=== PATIENT | male | born 1935 | race Caucasian/White ===

== ENCOUNTER 2016-08-27 08:49 | Emergency (ER) | payer BC, OTHER ==
[~2016-08-27] VITALS: Ht 177.8 cm; Wt 100.0 kg
[2016-08-27 10:08] LABS: HEMATOCRIT 51.4 % (38.0-50.0); MCH 27.9 PG (29.0-34.0); MCHC 31.9 G/DL (30.0-36.0); MCV 87.6 FL (86-99); MEAN PLAT.VOLUME 9.1 uM^3 (9.0-12.4); PLATELET COUNT 176 K/uL (156-360); RBC DIS.WIDTH-CV 12.9 % (11.8-14.6); RBC DIS.WIDTH-SD 41.3 % (39-53); RED BLOOD COUNT 5.87 M/uL (4.00-5.50); WHITE BLOOD COUNT 6.3 K/uL (4.1-10.2)
[2016-08-27 10:22] LABS: INTER. NORMALIZED RATIO 1.1; PROTHROMBIN TIME 11.3 (9.2-11.2)
[2016-08-27 10:23] LABS: CHLORIDE 102 mEq/L (99-109); POTASSIUM 4.4 mEq/L (3.7-5.4); SODIUM 138 mEq/L (136-147)
[2016-08-27 10:24] LABS: GLUCOSE 93 mg/dL (70-99)
[2016-08-27 10:26] LABS: ANION GAP 8 MEQ/L (2-14)
[2016-08-27 10:28] LABS: GFR ESTIMATE (CALCULATED) > 59 mL/min/
[2016-08-27 10:29] LABS: UREA NITROGEN (BUN) 17 mg/dL (9-23)
[2016-08-27] MEDS ORDERED: NAPROSYN500 MG PO (10:37)
[2016-08-27 11:01] VITALS: BP 128/86
== END 2016-08-27 11:01 | disposition home or self-care (01) ==
LOC: EME 08:49
PROVIDERS: Emergency Medicine
DX: S20.212A Contusion of left front wall of thorax, initial encounter (principal); W18.39XA Other fall on same level, initial encounter; Y93.K1 Activity, walking an animal; E78.5 Hyperlipidemia, unspecified; I10 Essential (primary) hypertension; Z86.73 Personal history of transient ischemic attack (TIA), and cerebral infarction without residual deficits; Z95.1 Presence of aortocoronary bypass graft
CPT/HCPCS: 71250; 80048; 85027; 85610; 99281; 99283